=== PATIENT | female | born 1960 | race Caucasian/White ===

== ENCOUNTER 2017-02-20 22:02 | Inpatient (IN) | payer BC, MEDICAID ==
[~2017-02-20] VITALS: Ht 149.9 cm; Wt 75.0 kg
[2017-02-20] MEDS ORDERED: SOD CHLORIDE 0.9% 1,000 ML IV STA (22:44)
[2017-02-21] VITALS (11 sets, daily range): BP systolic 100–124; BP diastolic 57–69; PULSE 52–64; RESP 18–20; TEMP 97.5; Ht 149.9 cm; Wt 75.0 kg
--- NOTE | 2017-02-21 00:03 | ERD ---
ER Documentation Chief Complaint Chief Complaint BIBA RA90,fall r/t syncope, c/o left knee pain HPI 56-year-old female with a history of benign brain tumor diagnosed about 20 years ago, headaches, and high cholesterol brought in by ambulance after syncopal episode. Per her daughters at bedside, she was sitting at the table when she suddenly started complaining of dizziness and stated she felt hot. After this she lost consciousness and her daughter state her eyes rolled back. She became limp. There was no seizure-like activity. She woke up after she was laid on the ground. There was no head injury or fall. She was not confused when she woke up. Patient states that she has daily headaches and has never had a follow-up for her "brain tumor". She was told in the past that she could not have surgery for this as it was very high risk. She does not know anything else about the tumor. Denies any nausea, vomiting, diplopia, or other vision disturbance. She denies any focal weakness or numbness. ROS All systems reviewed and are negative except as per history of present illness. Allergies Allergies: Coded Allergies: No Known Allergy (Unverified , 02/20/17) PMhx/Soc Medical and Surgical Hx: pt denies Surgical Hx Hx Neurological Disorder: Yes (benign brain tumor ) Hx Respiratory Disorders: No Hx Cardiac Disorders: Yes (hyperlipidemia) Hx Psychiatric Problems: No Hx Miscellaneous Medical Probl: Yes (hypothyroidism) Hx Alcohol Use: No Hx Substance Use: No Hx Tobacco Use: No Smoking Status: Never smoker FmHx Family History: other (CVAs) Physical Exam Vitals Vital Signs Date Time Temp Pulse Resp B/P Pulse Ox O2 Delivery O2 Flow Rate FiO2 02/21/17 01:30 97.5 66 20 115/67 100 Room Air 02/21/17 00:46 70 20 108/65 100 Room Air 02/20/17 23:10 98.0 62 19 109/64 100 Room Air 02/20/17 22:07 98.3 73 18 131/73 99 Physical Exam Const: well developed, well-nourished, nontoxic, no apparent distress Head: Atraumatic Eyes: Normal Conjunctiva, PERRLA, EOMI, no nystagmus ENT: Normal External Ears, Nose and Mouth. Neck: Full range of motion..~ No meningismus. No C-spine tenderness, no JVD Resp: Clear to auscultation bilaterally Cardio: Regular rate and rhythm, no murmurs. 2+ distal pulses in all 4 extremities Abd: Soft, non tender, non distended. Normal bowel sounds Skin: No petechiae or rashes Back: No midline or flank tenderness Ext: No cyanosis, or edema Neur: Awake and alert, oriented 3, cranial nerves intact, normal speech, strength 5 out of 5 in all extremities. Sensations intact in all 4 extremities. Romberg negative. Cerebellar exam normal. Gait normal. Psych: Normal Mood and Affect Result Diagram: 02/20/17222102/20/172221 Results 24 hrs Laboratory Tests Test 02/20/17 22:22 02/20/17 22:29 02/20/17 23:05 White Blood Count 7.410^3/ul Red Blood Count 3.8810^6/ul Hemoglobin 11.1g/dl Hematocrit 34.0% Mean Corpuscular Volume 87.6fl Mean Corpuscular Hemoglobin 28.6pg Mean Corpuscular Hemoglobin Concent 32.6g/dl Red Cell Distribution Width 13.2% Platelet Count 02152^3/UL Mean Platelet Volume 10.3fl Neutrophils % 45.9% Lymphocytes % 43.6% Monocytes % 8.5% Eosinophils % 0.9% Basophils % 0.7% Nucleated Red Blood Cells % 0.0/100WBC Neutrophils # 3.410^3/ul Lymphocytes # 3.210^3/ul Monocytes # 0.610^3/ul Eosinophils # 0.110^3/ul Basophils # 0.110^3/ul Nucleated Red Blood Cells # 0.010^3/ul Sodium Level 142mmol/L Potassium Level 3.6mmol/L Chloride Level 109mmol/L Carbon Dioxide Level 21mmol/L Anion Gap 16 Blood Urea Nitrogen 17mg/dl Creatinine 0.92mg/dl Glucose Level 89mg/dl Calcium Level 9.4mg/dl Troponin I < 0.012ng/ml Bedside Glucose 83mg/dL Urine Color YELLOW Urine Clarity SLIGHTLY CLOUDY Urine pH 5.0 Urine Specific [place] 1.015 Urine Ketones NEGATIVEmg/dL Urine Nitrite NEGATIVEmg/dL Urine Bilirubin NEGATIVEmg/dL Urine Urobilinogen NEGATIVEmg/dL Urine Leukocyte Esterase 3+George/ul Urine Microscopic RBC 4/HPF Urine Microscopic WBC 43/HPF Urine Squamous Epithelial Cells FEW/HPF Urine Hemoglobin 1+mg/dL Urine Glucose NEGATIVEmg/dL Urine Total Protein NEGATIVEmg/dl Current Medications Medications (Trade) Dose Ordered Sig/Raman Route PRN Reason Start Time Stop Time Status Last Admin Dose Admin Sodium Chloride (NS) 1,000 ml @ 1,000 mls/hr Q1H STAT IV 02/20/17 22:44 02/20/17 23:43 DC 02/20/17 22:51 Ondansetron HCl (Zofran Inj) 4 mg ER BRIDGE PRN IV NAUSEA AND/OR VOMITING 02/21/17 01:30 02/22/17 01:29 Acetaminophen (Tylenol Tab) 650 mg ER BRIDGE PRN PO MILD PAIN/FEVER 02/21/17 01:30 02/22/17 01:29 Procedures/MDM EMERGENT LABS AND DIAGNOSTIC STUDIES: Lab Results above were reviewed and interpreted by me. CBC: mild anemia BMP: No evidence of electrolyte abnormality, renal failure, hypoglycemia, liver failure, or biliary obstruction Troponin within normal limits UA: 3+ LE, +WBC 12-lead EKG was interpreted by Yandel Rubalcava MD: Normal Sinus Rhythm with ventricular rate of 66 beats per minute Normal axis Normal intervals No acute ST or T wave changes suggestive of acute ischemia or STEMI. Radiology Results as interpreted by Radiology below were reviewed by SStorm Rubalcava MD: Chest x-ray: no acute abnormalities CT head: no acute abnormalities Initial Nursing notes reviewed. Previous Medical Records requested via the Electronic Health Record. EMERGENCY DEPARTMENT COURSE / MEDICAL DECISION MAKING: The patient presented after a syncopal episode. Vitals were stable upon arrival. Differential includes but is not limited to cardiac arrhythmia or ischemia, pulmonary embolism, vasovagal syncope, situational syncope, dehydration with orthostatic hypotension, hemorrhage, sepsis, stroke ,ICH, hypoglycemia. I have a low suspicion for seizure, stroke, or serious head injury. Blood sugar was normal. EKG showed no significant arrhythmia or ischemia. Labs were notable for possible evidence of urine infection, however the patient is asymptomatic, so I do not think treatment is necessary at this time. Urine culture was sent and is pending.. Chest Xray showed no acute abnormalities. Given the patients medical history of possible brain tumor, I do not think she is safe for discharge at this time. I feel she will likely need an MRI of her brain. She has no outpatient follow-up, so do not feel comfortable sending her home at this time without an MRI. I have a low suspicion for stroke and there is no evidence of increased intracranial pressure on the CT head. I will admit her for further monitoring to telemetry and for an MRI of her brain in the morning. Accepting Care Team: Current data and ongoing care discussed. Time: Time of admission Primary Provider: Biju Outstanding Data: Urine culture Departure Diagnosis: Primary Impression: Syncope Syncope type: unspecified Qualified Code: R55 - Syncope, unspecified syncope type Condition: CONOR Gonzalez MD Feb 21, 2017 00:03
--- NOTE | 2017-02-21 00:44 | RADRPT ---
PROCEDURE: Noncontrast CT Head. CLINICAL INDICATION: Pain. TECHNIQUE: Noncontrast CT of the head was obtained. The administered radiation dose was CTDI vol = 45 mGy, DLP = 720 mGy-cm. One or more of the following dose reduction techniques were used: automate d exposure control, adjustment of the mA and/or kV according to patient size and/or use of iterative reconstruction technique. COMPARISON: No pertinent prior examinations were submitted for comparison. FINDINGS: The ventricles and sulci are within normal limits. There is no acute intracranial hemorrhage or ext ra-axial fluid collection. There is no mass effect. No midline shift is identified. There is no loss of june-white differentiation to suggest acute infarction. The orbits are within normal limits. The paranasal sinuses and mastoid air cells are without fluid. No destructive osseous lesion is identified. IMPRESSION: No acute findings. RPTAT: HIKT .Crow De La Garza MD, MD Date Time Electronically viewed and signed by .Crow De La Garza MD, on 02/21/2017 00:44 .T/
--- NOTE | 2017-02-21 00:47 | RADRPT ---
PROCEDURE: Chest. CLINICAL INDICATION: Syncope. TECHNIQUE: Single frontal view of the chest was obtained. COMPARISON: None. FINDINGS: The cardiac silhouette is magnified. The aortic arch is unremarkable. There is no focal consolidat ion, vascular congestion or pleural effusion. There is no pneumothorax. IMPRESSION: No evidence for active cardiopulmonary disease. .Jose Carter MD, Date Time Electronically viewed and signed by .Jose Carter MD, on 02/21/2017 00:46 .T/
[2017-02-21] MEDS ORDERED: ONDANSETRON 4 MG INJ IV PRN ×2 (01:30→06:30)
[2017-02-21] MEDS ORDERED: ACETAMINOPHEN 325 MG TAB PO PRN ×2 (01:30→06:30)
[2017-02-21] MEDS ORDERED: DOCUSATE SODIUM 100 MG CAP PO PRN (06:30)
[2017-02-21] MEDS ORDERED: NACL 0.9% 3 ML SYG IV SCH (06:30)
[2017-02-21] MEDS ORDERED: BISACODYL (EC) 5 MG TAB PO PRN (06:30)
--- NOTE | 2017-02-21 09:45 | RADRPT ---
PROCEDURE: US carotid arteries. CLINICAL INDICATION: Syncope. Dizziness. TECHNIQUE: Multiple sonographic images of the carotid arteries and vertebral arteries were obtaine d utilizing june scale, duplex, and color-flow imaging. The images were reviewed on a PACS workstati on. COMPARISON: No prior studies are available for comparison. FINDINGS: Evaluation of the right carotid bifurcation region reveals no atherosclerotic disease. Evaluation of the left carotid bifurcation region reveals no atherosclerotic disease. There is antegrade flow within the vertebral arteries bilaterally. RIGHT CAROTID MEASUREMENTS: Common Carotid [id number] (cm/sec) Internal Carotid Artery 77 (cm/sec) External Carotid Artery 56 (cm/sec) Vertebral Artery 44 (cm/sec) Internal Carotid/Common Carotid1.0 LEFT CAROTID MEASUREMENTS: Common Carotid [id number] (cm/sec) Internal Carotid Artery 102 (cm/sec) External Carotid Artery 75 (cm/sec) Vertebral Artery 40 (cm/sec) Internal Carotid/Common Carotid1.2 Validated velocity measurements with angiographic measurements. Velocity criteria are extrapolated f rom diameter data as defined by the Society of Radiologists in Ultrasound Consensus Conference. Radi ology 2003; 229;340-346. This study does indirectly reference the measurement of the distal ICA lisa meter as the denominator for stenosis measurement. IMPRESSION: 1. Less than 50% stenosis bilaterally in the internal carotid arteries. 2. Normal antegrade flow in the vertebral arteries bilaterally. RPTAT: QQ SRU Consensus Conference Criteria for the Diagnosis of Carotid Artery Stenosis* Degree of Stenosis, % ICA PSV, cm/sec Plaque Estimate, % ICA/CCA PSV Ratio Normal <125 None <2.0 <50 <125 <50 <2.0 50 69 125-230 >50 2.0-4.0 >70 but less than near occlusion >230 >50 <4.0 Near occlusion High, low, or undetectable Visible Variable Total occlusion Undetectable Visible, no detectable lumen Not applicable *Cartoid artery stenosis: june-scale and Doppler US diagnosis. Society of Radiologists in Ultrasound Consensus Conference. Radiology 2003; 229: 340-346 .Norris Franklin MD, Date Time Electronically viewed and signed by .Norris Franklin MD, on 02/21/2017 09:45 .R/
--- NOTE | 2017-02-21 11:34 | HP ---
Date/Time of Note Date/Time of Note DATE: 02/21/17 TIME: 11:28 Assessment/Plan VTE Prophylaxis VTE Prophylaxis Intervention: SCD's Assessment/Plan Chief Complaint/Hosp Course This is a 56-year-old female being admitted to the telemetry floor for: #1 Syncopal episode: Patient does report loss of continence. She does have a history of apparently a brain tumor in the past. CAT scan again was normal at this time. Will check MRI of the brain. Will check carotid Doppler ultrasound. Will check 2D echocardiogram and Doppler study. Will consider neurology consultation/cardiology consultation if indicated. Will also check a TSH level. Patient also has a urinary tract infection is also could be attributed fracture. #2 hypothyroidism: Patient's dose of levothyroxine is unknown at this time, will need to confirm patient's dose. Will check a TSH level and adjust medication if indicated. #3 history of brain tumor: CAT scan at this time is currently normal. Will check MRI of the brain for further evaluation. Will consider neurology consultation if indicated. #4 urinary tract infection: Ceftriaxone 1 g every 24 hours. Will await urine culture. #5 DVT and GI prophylaxis: SCDs, no GI prophylaxis indicated at this time Further treatment strategy will be augmented as per the clinical course Problems: HPI/ROS Admit Date/Time Admit Date/Time Feb 21, 2017 at 01:32 Hx of Present Illness Chief complaint: Syncope This is a 56-year-old female with a history of benign brain tumor diagnosed about 20 years ago, headaches, and high cholesterol brought in by ambulance after syncopal episode. Per her daughters at bedside, she was sitting at the table when she suddenly started complaining of dizziness and stated she felt hot. After this she lost consciousness and her daughter state her eyes rolled back. She became limp. There was no seizure-like activity. She woke up after she was laid on the ground. There was no head injury or fall. She was not confused when she woke up. Patient states that she has daily headaches and has never had a follow-up for her "brain tumor". She was told in the past that she could not have surgery for this as it was very high risk. She does not know anything else about the tumor. Denies any nausea, vomiting, diplopia, or other vision disturbance. She denies any focal weakness or numbness. Of note patient also stated that during daytime she also threw up and for a few days she was noticing some right ear pressure which has not resolved. She does report that her urine is dark. Allergies: NKDA Medications: See KRYS BARR Const: As per HPI Eyes : No pain discharge or redness or change in visual acuity ENT: No pain, sore throat, congestion, congestion, dysphagia or discharge Respiratory: No shortness of breath, cough, sputum, wheezing, or pleuritic pain Cardiovascular: No chest pain, palpitation, PND, or edema GI : no change in appetite, abdominal pain, nausea, vomiting, diarrhea, constipation, or change in the color his stool Genitourinary: No dysuria, hematuria, flank pain , discharge or CVA tenderness Musculoskeletal: No joint pain, back pain, neck pain, restricted range of motion in neck or joints Skin: No rash, bruising or hives Neuro: As per HPI Endocrine: No polyuria, polydipsia, temperature intolerance Psych: No hallucination, depression, anxiety or suicidal ideation PMH/Family/Social Past Medical History History of brain tumor, hypothyroidism Past Surgical History Past Surgical Hx: no surgical history Family History Significant Family History: diabetes, hypertension Social History Alcohol Use: none Smoking Status: Never smoker Drug Use: none Exam/Review of Systems Vital Signs Vitals Vital Signs Date Time Temp Pulse Resp B/P Pulse Ox O2 Delivery O2 Flow Rate FiO2 02/21/17 08:32 98.6 59 18 100/57 98 02/21/17 01:30 Room Air Intake and Output 02/20/17 02/20/17 02/21/17 15:00 23:00 07:00 Intake Total 100 ml Balance 100 ml Exam Exam General: Patient is a pleasant female lying in bed in no acute distress The patient is alert oriented -3 lying comfortably in bed. HEENT: Atraumatic, normocephalic. The pupils are equal, round and reactive. Extraocular motor are intact Neck: Supple with full range of motion. No rigidity or meningismus Chest: Nontender Lungs: Clear to auscultation bilaterally no crackles rales or wheezing Heart: Normal S1-S2, Regular rhythm and rate. No murmur, S3, or S4 Abdomen: Soft , nontender, nondistended , bowel sounds are present. No guarding no rebound tenderness , No masses or organomegaly. No costovertebral temporal angle mass Extremities: Normal to inspection, no edema no cyanosis Neurologic: Normal mental status, speech normal, cranial nerves II through XII are intact, motor and sensory are intact, no focal weakness Additional Comments PROCEDURE: Chest. CLINICAL INDICATION: Syncope. TECHNIQUE: Single frontal view of the chest was obtained. COMPARISON: None. FINDINGS: The cardiac silhouette is magnified. The aortic arch is unremarkable. There is no focal consolidation, vascular congestion or pleural effusion. There is no pneumothorax. IMPRESSION: No evidence for active cardiopulmonary disease. .Jose Carter MD, MD Date Time Electronically viewed and signed by .Jose Carter MD, MD on 02/21/2017 00:46 .T/ CC: CONOR NOEL MD PROCEDURE: Noncontrast CT Head. CLINICAL INDICATION: Pain. TECHNIQUE: Noncontrast CT of the head was obtained. The administered radiation dose was CTDI vol = 45 mGy, DLP = 720 mGy-cm. One or more of the following dose reduction techniques were used: automated exposure control, adjustment of the mA and/or kV according to patient size and/or use of iterative reconstruction technique. COMPARISON: No pertinent prior examinations were submitted for comparison. FINDINGS: The ventricles and sulci are within normal limits. There is no acute intracranial hemorrhage or extra-axial fluid collection. There is no mass effect. No midline shift is identified. There is no loss of june-white differentiation to suggest acute infarction. The orbits are within normal limits. The paranasal sinuses and mastoid air cells are without fluid. No destructive osseous lesion is identified. IMPRESSION: No acute findings. RPTAT: HIKT .Crow De La Garza MD, Date Time Electronically viewed and signed by .Crow De La Garza MD, MD on 02/21/2017 00:44 .T/ CC: CONOR NOEL MD Labs Result Diagram: 02/21/17 0646 02/21/17 0646 Medications Medications Current Medications Ondansetron HCl (Zofran Inj) 4 mg Q6H PRN IV NAUSEA AND/OR VOMITING; Start 02/21/17 at 06:30 Acetaminophen (Tylenol Tab) 650 mg Q6H PRN PO PAIN LEVEL 1-3 OR FEVER; Start 02/21/17 at 06:30 Docusate Sodium (Colace) 100 mg Q12H PRN PO CONSTIPATION; Start 02/21/17 at 06: 30 Bisacodyl (Dulcolax) 5 mg DAILY PRN PO CONSTIPATION; Start 02/21/17 at 06:30 PAM RAVI Feb 21, 2017 11:34
[2017-02-21] MEDS: CEFTRIAXONE 1 GM/50 ML (PMX) 50 ML IVPB SCH (13:00)
--- NOTE | 2017-02-21 13:32 | PN ---
Date/Time of Note Date/Time of Note DATE: 02/21/17 TIME: 13:32 Assessment/Plan VTE Prophylaxis VTE Prophylaxis Intervention: SCD's Assessment/Plan Assessment/Plan 1. Syncopal episode - CT head shows no acute abnormalities - MRI head and ECHO pending - Carotid duplex negative for any acute stenosis 2. Hypothyroidism - Home dose of synthroid unknown and will start on 25mcg for now and adjust once able to confirm pts dose - TSH 8 3. H/o brain tumor - Patient states was told 20 years ago she had a tumor but was inoperable - CT negative for any abnormalities - Will await MRI results prior to obtaining Neurology consult if needed 4. UTI - On Ceftriaxone - Culture pending 5. Disposition - continue monitoring in Telemetry - Awaiting results of ECHO and MRI to see if consultations warranted Subjective 24 Hr Interval Summary Free Text/Dictation Patient resting comfortably with family at bedside. Denies any new complaints and no acute overnight events. Awaiting MRI Exam/Review of Systems Vital Signs Vitals Vital Signs Date Time Temp Pulse Resp B/P Pulse Ox O2 Delivery O2 Flow Rate FiO2 02/21/17 12:24 98.6 60 18 124/60 99 02/21/17 01:30 Room Air Intake and Output 02/20/17 02/20/17 02/21/17 15:00 23:00 07:00 Intake Total 100 ml Balance 100 ml Exam General: Resting comfortably in no acute distress. AAOx4 HEENT: Atraumatic, normocephalic. The pupils are equal, round and reactive. Extraocular motor are intact Neck: Supple with full range of motion. No rigidity or meningismus Lungs: Clear to auscultation bilaterally no crackles rales or wheezing Heart: Normal S1-S2, Regular rhythm and rate. No murmur, S3, or S4 Abdomen: Soft , nontender, nondistended , bowel sounds are present. No guarding no rebound tenderness Extremities: Normal to inspection, no edema no cyanosis Neurologic: Normal mental status, speech normal, cranial nerves II through XII are intact, motor and sensory are intact, no focal weakness Results Result Diagram: 02/21/17 0646 02/21/17 0646 Results 24 hrs Laboratory Tests Test 02/20/17 22:22 02/20/17 22:29 02/20/17 23:05 02/21/17 06:46 White Blood Count 7.4 7.4 Red Blood Count 3.88 L 3.73 L Hemoglobin 11.1 L 10.8 L Hematocrit 34.0 L 33.0 L Mean Corpuscular Volume 87.6 88.5 Mean Corpuscular Hemoglobin 28.6 L 29.0 Mean Corpuscular Hemoglobin Concent 32.6 32.7 Red Cell Distribution Width 13.2 13.2 Platelet Count 233 248 Mean Platelet Volume 10.3 10.3 Neutrophils % 45.9 52.0 Lymphocytes % 43.6 38.2 Monocytes % 8.5 7.9 Eosinophils % 0.9 0.9 Basophils % 0.7 0.7 Nucleated Red Blood Cells % 0.0 0.0 Neutrophils # 3.4 3.9 Lymphocytes # 3.2 H 2.8 Monocytes # 0.6 0.6 Eosinophils # 0.1 0.1 Basophils # 0.1 0.1 Nucleated Red Blood Cells # 0.0 0.0 Sodium Level 142 144 Potassium Level 3.6 4.5 Chloride Level 109 112 H Carbon Dioxide Level 21 23 Anion Gap 16 14 Blood Urea Nitrogen 17 16 Creatinine 0.92 0.83 Glucose Level 89 95 Calcium Level 9.4 8.9 Troponin I < 0.012 < 0.012 Bedside Glucose 83 Urine Color YELLOW Urine Clarity SLIGHTLY CLOUDY A Urine pH 5.0 Urine Specific [place] 1.015 Urine Ketones NEGATIVE Urine Nitrite NEGATIVE Urine Bilirubin NEGATIVE Urine Urobilinogen NEGATIVE Urine Leukocyte Esterase 3+ H Urine Microscopic RBC 4 Urine Microscopic WBC 43 H Urine Squamous Epithelial Cells FEW Urine Hemoglobin 1+ H Urine Glucose NEGATIVE Urine Total Protein NEGATIVE Hemoglobin A1c 5.6 Total Bilirubin 0.1 L Direct Bilirubin 0.00 Indirect Bilirubin 0.1 Aspartate Amino Transf (AST/SGOT) 23 Alanine Aminotransferase (ALT/SGPT) 31 Alkaline Phosphatase 67 Creatine Kinase 93 Creatine Kinase Index 1.4 Creatinine Kinase MB (Mass) 1.26 Total Protein 6.7 Albumin 3.7 Globulin 3.00 Albumin/Globulin Ratio 1.23 Triglycerides Level 190 H Cholesterol Level 186 LDL Cholesterol, Calculated 79 HDL Cholesterol 69 Cholesterol/HDL Ratio 2.6 Thyroid Stimulating Hormone (TSH) 8.420 H Test 02/21/17 12:04 Creatine Kinase 88 Creatine Kinase Index 1.2 Creatinine Kinase MB (Mass) 1.05 Troponin I < 0.012 Medications Medications Current Medications Ondansetron HCl (Zofran Inj) 4 mg Q6H PRN IV NAUSEA AND/OR VOMITING; Start 02/21/17 at 06:30 Acetaminophen (Tylenol Tab) 650 mg Q6H PRN PO PAIN LEVEL 1-3 OR FEVER; Start 02/21/17 at 06:30 Docusate Sodium (Colace) 100 mg Q12H PRN PO CONSTIPATION; Start 02/21/17 at 06: 30 Bisacodyl 5 mg 5 mg DAILY PRN PO CONSTIPATION; Start 02/21/17 at 06:30 Ceftriaxone Sodium (Rocephin) 50 ml @ 100 mls/hr Q24H IVPB ; Start 02/21/17 at 13:00 PENNIE JAFFE MD Feb 21, 2017 13:32
[2017-02-22] VITALS (12 sets, daily range): BP systolic 100–118; BP diastolic 57–62; PULSE 42–71; RESP 16–18
[2017-02-22] MEDS: LEVOTHYROXINE 25 MCG TAB PO SCH (05:27)
[2017-02-22] MEDS: CEFTRIAXONE 1 GM/50 ML (PMX) 50 ML IVPB SCH (14:13)
--- NOTE | 2017-02-22 15:51 | RADRPT ---
PROCEDURE: MR Brain without contrast. CLINICAL INDICATION: Neurologic deficit TECHNIQUE: An MRI of the brain was performed on a high-resolution MR scanner utilizing the followi ng sequences: Sagittal and axial T1 weighted, axial T2 weighted, axial FLAIR, coronal GRE, and axial diffusion weighted with ADC mapping. Images were reviewed high-resolution PACS workstation. No con trast was administered. COMPARISON: Head CT 02/21/2017 FINDINGS: No acute parenchymal hemorrhage, mass effect, or midline shift. No evidence of recent infarct. Scatt ered subcortical in deep cerebral white matter T2-weighted/FLAIR hyperintensities are identified. No suspicious parenchymal hypointense signal abnormalities are seen on the GRE images to suggest the presence of blood degradation products. The ventricles are normal in size for age. Normal flow voids are visible in the proximal intracranial arteries suggesting their patency. No significant opacification of the paranasal sinuses or mastoids. IMPRESSION: No acute intracranial abnormality identified. Numerous scattered bilateral cerebral white matter T2 / FLAIR hyperintense foci are identified. The findings are nonspecific but can be seen with prior trauma, chronic headaches, microvascular disease , vasculitis, demyelination, or other etiologies. RPTAT: AA .Cheng De La Rosa MD, MD Date Time Electronically viewed and signed by .Cheng De La Rosa MD, on 02/22/2017 15:50 .T/
--- NOTE | 2017-02-22 16:12 | PN ---
Date/Time of Note Date/Time of Note DATE: 02/22/17 TIME: 16:10 Assessment/Plan VTE Prophylaxis VTE Prophylaxis Intervention: SCD's Lines/Catheters IV Catheter Type (from [facility] Sal[facility] Lock Urinary Cath still in place: No Assessment/Plan Chief Complaint/Hosp Course 1. Syncopal episode - CT head shows no acute abnormalities - MRI head non specific - Carotid duplex negative for any acute stenosis - possible 2/2 to uti/volume depletion 2. Hypothyroidism - Home dose of synthroid unknown and will start on 25mcg for now and adjust once able to confirm pts dose - TSH 8 3. H/o brain tumor - Patient states was told 20 years ago she had a tumor but was inoperable - CT negative for any abnormalities - MRI non-specific, no signs of mass, but study was non-contrast 4. UTI - On Ceftriaxone - Culture pending 5. Disposition - cardiology consult for bradycardia Problems: Subjective 24 Hr Interval Summary Free Text/Dictation no acute issues Exam/Review of Systems Vital Signs Vitals Vital Signs Date Time Temp Pulse Resp B/P Pulse Ox O2 Delivery O2 Flow Rate FiO2 02/22/17 16:00 98.0 75 18 105/59 97 02/21/17 01:30 Room Air Intake and Output 02/21/17 02/21/17 02/22/17 15:00 23:00 07:00 Intake Total 300 ml Balance 300 ml Exam General: Resting comfortably in no acute distress. AAOx4 HEENT: Atraumatic, normocephalic. The pupils are equal, round and reactive. Extraocular motor are intact Neck: Supple with full range of motion. No rigidity or meningismus Lungs: Clear to auscultation bilaterally no crackles rales or wheezing Heart: Normal S1-S2, Regular rhythm and rate. No murmur, S3, or S4 Abdomen: Soft , nontender, nondistended , bowel sounds are present. No guarding no rebound tenderness Extremities: Normal to inspection, no edema no cyanosis Neurologic: Normal mental status, speech normal, cranial nerves II through XII are intact, motor and sensory are intact, no focal weakness Results Result Diagram: 02/22/1733 02/22/17 0633 Results 24 hrs Laboratory Tests Test 02/22/17 06:33 White Blood Count 6.8 Red Blood Count 3.99 L Hemoglobin 11.8 L Hematocrit 35.5 L Mean Corpuscular Volume 89.0 Mean Corpuscular Hemoglobin 29.6 Mean Corpuscular Hemoglobin Concent 33.2 Red Cell Distribution Width 13.0 Platelet Count 258 Mean Platelet Volume 10.2 Neutrophils % 50.5 Lymphocytes % 40.4 Monocytes % 7.0 Eosinophils % 1.2 Basophils % 0.6 Nucleated Red Blood Cells % 0.0 Neutrophils # 3.4 Lymphocytes # 2.8 Monocytes # 0.5 Eosinophils # 0.1 Basophils # 0.0 Nucleated Red Blood Cells # 0.0 Sodium Level 144 Potassium Level 4.7 Chloride Level 108 Carbon Dioxide Level 29 Anion Gap 12 Blood Urea Nitrogen 16 Creatinine 0.83 Glucose Level 86 Calcium Level 9.7 Phosphorus Level 4.0 Magnesium Level 1.9 Albumin 3.9 Medications Medications Current Medications Ondansetron HCl (Zofran Inj) 4 mg Q6H PRN IV NAUSEA AND/OR VOMITING; Start 02/21/17 at 06:30 Acetaminophen (Tylenol Tab) 650 mg Q6H PRN PO PAIN LEVEL 1-3 OR FEVER; Start 02/21/17 at 06:30 Docusate Sodium (Colace) 100 mg Q12H PRN PO CONSTIPATION; Start 02/21/17 at 06: 30 Bisacodyl 5 mg 5 mg DAILY PRN PO CONSTIPATION; Start 02/21/17 at 06:30 Ceftriaxone Sodium (Rocephin) 50 ml @ 100 mls/hr Q24H IVPB Last administered on 02/22/17 14:13; Admin Dose 100 MLS/HR; Start 02/21/17 at 13:00 Levothyroxine Sodium (Synthroid) 25 mcg DAILY@06 PO Last administered on 05:27; Admin Dose 25 MCG; Start 02/22/17 at 06:00 CALOS SAEZ Feb 22, 2017 16:12
[2017-02-23] VITALS (13 sets, daily range): BP systolic 92–119; BP diastolic 51–91; PULSE 49–98; RESP 15–20
[2017-02-23] MEDS: LEVOTHYROXINE 25 MCG TAB PO SCH (06:02)
[2017-02-23] MEDS: CEFTRIAXONE 1 GM/50 ML (PMX) 50 ML IVPB SCH (12:30)
--- NOTE | 2017-02-23 15:14 | PN ---
Date/Time of Note Date/Time of Note DATE: 02/23/17 TIME: 15:13 Assessment/Plan VTE Prophylaxis VTE Prophylaxis Intervention: SCD's Lines/Catheters IV [facility]ter Type (from [email or web address] Urinary Cath still in place: No Assessment/Plan Chief Complaint/Hosp Course 1. Syncopal episode - CT head shows no acute abnormalities - MRI head non specific - Carotid duplex negative for any acute stenosis - possible 2/2 to uti/volume depletion #bradycardia -? cause of syncope -cardiology consulted -happens in early AM 2. Hypothyroidism - Home dose of synthroid unknown and will start on 25mcg for now and adjust once able to confirm pts dose - TSH 8 3. H/o brain tumor - Patient states was told 20 years ago she had a tumor but was inoperable - CT negative for any abnormalities - MRI non-specific, no signs of mass, but study was non-contrast 4. UTI - On Ceftriaxone - Culture pending 5. Disposition - cardiology consult for bradycardia Problems: Subjective 24 Hr Interval Summary Free Text/Dictation no acute issues at this time Exam/Review of Systems Vital Signs Vitals Vital Signs Date Time Temp Pulse Resp B/P Pulse Ox O2 Delivery O2 Flow Rate FiO2 02/23/17 12:23 85 02/23/17 11:40 98.6 18 109/55 99 02/22/17 20:00 Room Air Intake and Output 02/22/17 02/22/17 02/23/17 15:00 23:00 07:00 Intake Total 120 ml 120 ml Balance 120 ml 120 ml Exam General: Resting comfortably in no acute distress. AAOx4 HEENT: Atraumatic, normocephalic. The pupils are equal, round and reactive. Extraocular motor are intact Neck: Supple with full range of motion. No rigidity or meningismus Lungs: Clear to auscultation bilaterally no crackles rales or wheezing Heart: Normal S1-S2, Regular rhythm and rate. No murmur, S3, or S4 Abdomen: Soft , nontender, nondistended , bowel sounds are present. No guarding no rebound tenderness Extremities: Normal to inspection, no edema no cyanosis Neurologic: Normal mental status, speech normal, cranial nerves II through XII are intact, motor and sensory are intact, no focal weakness Results Result Diagram: 02/23/1781202/23/17812 Results 24 hrs Laboratory Tests Test 11/7/17 08:13 White Blood Count 6.3 Red Blood Count 3.99 L Hemoglobin 11.9 L Hematocrit 35.5 L Mean Corpuscular Volume 89.0 Mean Corpuscular Hemoglobin 29.8 Mean Corpuscular Hemoglobin Concent 33.5 Red Cell Distribution Width 12.8 Platelet Count 261 Mean Platelet Volume 9.9 Neutrophils % 48.1 Lymphocytes % 43.5 Monocytes % 6.2 Eosinophils % 1.1 Basophils % 0.8 Nucleated Red Blood Cells % 0.0 Neutrophils # 3.0 Lymphocytes # 2.7 Monocytes # 0.4 Eosinophils # 0.1 Basophils # 0.1 Nucleated Red Blood Cells # 0.0 Sodium Level 145 H Potassium Level 4.7 Chloride Level 107 Carbon Dioxide Level 27 Anion Gap 16 Blood Urea Nitrogen 16 Creatinine 0.84 Glucose Level 88 Calcium Level 9.4 Phosphorus Level 4.6 Magnesium Level 2.0 Albumin 4.1 Medications Medications Current Medications Ondansetron HCl (Zofran Inj) 4 mg Q6H PRN IV NAUSEA AND/OR VOMITING; Start 02/21/17 at 06:30 Acetaminophen (Tylenol Tab) 650 mg Q6H PRN PO PAIN LEVEL 1-3 OR FEVER; Start 02/21/17 at 06:30 Docusate Sodium (Colace) 100 mg Q12H PRN PO CONSTIPATION; Start 02/21/17 at 06: 30 Bisacodyl 5 mg 5 mg DAILY PRN PO CONSTIPATION; Start 02/21/17 at 06:30 Ceftriaxone Sodium (Rocephin) 50 ml @ 100 mls/hr Q24H IVPB Last administered on 02/23/17 12:30; Admin Dose 100 MLS/HR; Start 02/21/17 at 13:00 Levothyroxine Sodium (Synthroid) 25 mcg DAILY@06 PO Last administered on 06:02; Admin Dose 25 MCG; Start 02/22/17 at 06:00 CALOS SAEZ Feb 23, 2017 15:14
--- NOTE | 2017-02-23 17:17 | CONS ---
Date/Time of Note Date/Time of Note DATE: 02/23/17 TIME: 17:12 Assessment/Plan Assessment/Plan Chief Complaint/Hosp Course 1. Syncope: Etiology unclear by doubt any cardiac cause an arrhythmia as the cause of it. 2. Sinus bradycardia intermittent and probably related to her thyroid disorder. Obstructive sleep apnea cannot be ruled out. 3. History of hypothyroidism to be managed as per internal medicine 4. History of dyslipidemia 5. Obesity Recommendation: I recommend adjustment of thyroid medication Recommends a sleep apnea evaluation No evidence of significant arrhythmia on the monitor to explain the patient's syncope. Span is bradycardia by itself should not cause the syncope. No evidence of heart block was seen. Thank you for his referral. I will follow the patient as needed. Please do not hesitate to contact me for any further questions. RAUL NAJERA MD [facility] Problems: Consultation Date/Type/Reason Admit Date/Time Feb 21, 2017 at 01:32 Date of Consultation: Feb 23, 2017 Type of Consultation: card Reason for Consultation bradycardia Hx of Present Illness CC: syncope HPI: Thank you for his referral. History was of normal the patient discussion with her daughters. This is a pleasant 56-year-old female with history of hypothyroidism and dyslipidemia who was brought into the emergency room because of above complaint. Patient said she was holding her grandkids. She felt dizzy and lightheaded felt like she was going to pass out. She handed the grandkids to the family and after that apparently has passed out. She denies any history of similar symptoms. She was noted to be in sinus bradycardia. It was it was reviewed. Heart has remained mostly sinus rhythm sinus bradycardia heart as low as 40s-50s but in sinus with no evidence of heart block as a review of the rhythm which was personally done. Patient is also on Synthroid which does not know exact dosage of it. Her TSH was also elevated at 8. No chest pain or pressure no palpitation. She is feeling fine since she has been in the hospital. Medication At Home Synthroid and a cholesterol medication she does not know the dosage of them. Social history does not smoke or drink. Past medical history of hypothyroidism and dyslipidemia Family history no reported early coronary artery disease. Review of system as above only. Past Surgical History Past Surgical Hx: no surgical history Social History Alcohol Use: none Smoking Status: Never smoker Drug Use: none Exam/Review of Systems Vital Signs Vitals Vital Signs Date Time Temp Pulse Resp B/P Pulse Ox O2 Delivery O2 Flow Rate FiO2 02/23/17 16:42 62 104/58 110/56 111/91 02/23/17 15:44 98.4 18 96 02/22/17 20:00 Room Air Intake and Output 02/22/17 02/22/17 02/23/17 15:00 23:00 07:00 Intake Total 120 ml 120 ml Balance 120 ml 120 ml Exam General: obese no acute distress HEENT: NC/AT. pupils are equal. round. NECK: NO JVD. no stridor. CV: RRR. systolic murmur; no gallop or rubs. PULM: no wheezing or rhonchi. GI: SOFT, NT, ND, no rebound or guarding Extremity: trace B/L LE edema. no clubbing. neuro: awake and alert, OX3. Psych: calm and pleasant rectal: deferred ECG NSR Results Result Diagram: 02/23/17 0813 02/23/17 0813 Results 24 hrs Laboratory Tests Test 02/23/17 08:13 White Blood Count 6.3 Red Blood Count 3.99 L Hemoglobin 11.9 L Hematocrit 35.5 L Mean Corpuscular Volume 89.0 Mean Corpuscular Hemoglobin 29.8 Mean Corpuscular Hemoglobin Concent 33.5 Red Cell Distribution Width 12.8 Platelet Count 261 Mean Platelet Volume 9.9 Neutrophils % 48.1 Lymphocytes % 43.5 Monocytes % 6.2 Eosinophils % 1.1 Basophils % 0.8 Nucleated Red Blood Cells % 0.0 Neutrophils # 3.0 Lymphocytes # 2.7 Monocytes # 0.4 Eosinophils # 0.1 Basophils # 0.1 Nucleated Red Blood Cells # 0.0 Sodium Level 145 H Potassium Level 4.7 Chloride Level 107 Carbon Dioxide Level 27 Anion Gap 16 Blood Urea Nitrogen 16 Creatinine 0.84 Glucose Level 88 Calcium Level 9.4 Phosphorus Level 4.6 Magnesium Level 2.0 Albumin 4.1 Medications Medications Current Medications Ondansetron HCl (Zofran Inj) 4 mg Q6H PRN IV NAUSEA AND/OR VOMITING; Start 02/21/17 at 06:30 Acetaminophen (Tylenol Tab) 650 mg Q6H PRN PO PAIN LEVEL 1-3 OR FEVER; Start 02/21/17 at 06:30 Docusate Sodium (Colace) 100 mg Q12H PRN PO CONSTIPATION; Start 02/21/17 at 06: 30 Bisacodyl 5 mg 5 mg DAILY PRN PO CONSTIPATION; Start 02/21/17 at 06:30 Ceftriaxone Sodium (Rocephin) 50 ml @ 100 mls/hr Q24H IVPB Last administered on 02/23/17 12:30; Admin Dose 100 MLS/HR; Start 02/21/17 at 13:00 Levothyroxine Sodium (Synthroid) 25 mcg DAILY@06 PO Last administered on 06:02; Admin Dose 25 MCG; Start 02/22/17 at 06:00 RAUL NAJERA MD Feb 23, 2017 17:17
[2017-02-24] VITALS (8 sets, daily range): BP systolic 99–126; BP diastolic 52–77; PULSE 62–71; RESP 17–20
[2017-02-24] MEDS: LEVOTHYROXINE 25 MCG TAB PO SCH (05:10)
--- NOTE | 2017-02-24 11:40 | PDOCDIS ---
Discharge Instructions CONDITION Patient Condition: Stable HOME CARE INSTRUCTIONS: Special Diet: REGULAR DIET FOLLOW UP/APPOINTMENTS Follow-up Plan 1. Follow up with your primary care provider as soon as possible to follow up thyroid levels CALOS SAEZ Feb 24, 2017 11:40
[2017-02-24] MEDS ORDERED: SIMV40TA3 PO (11:42)
[2017-02-24] MEDS ORDERED: LEVO137T3 PO (11:42)
--- NOTE | 2017-02-24 14:33 | DS ---
Date/Time of Note Date/Time of Note DATE: 02/24/17 TIME: 14:33 Discharge Summary Admission/Discharge Info Admit Date/Time Feb 21, 2017 at 01:32 Discharge Date/Time Feb 24, 2017 at 13:30 Patient Condition: Stable Hx of Present Illness Chief complaint: Syncope This is a 56-year-old female with a history of benign brain tumor diagnosed about 20 years ago, headaches, and high cholesterol brought in by ambulance after syncopal episode. Per her daughters at bedside, she was sitting at the table when she suddenly started complaining of dizziness and stated she felt hot. After this she lost consciousness and her daughter state her eyes rolled back. She became limp. There was no seizure-like activity. She woke up after she was laid on the ground. There was no head injury or fall. She was not confused when she woke up. Patient states that she has daily headaches and has never had a follow-up for her "brain tumor". She was told in the past that she could not have surgery for this as it was very high risk. She does not know anything else about the tumor. Denies any nausea, vomiting, diplopia, or other vision disturbance. She denies any focal weakness or numbness. Of note patient also stated that during daytime she also threw up and for a few days she was noticing some right ear pressure which has not resolved. She does report that her urine is dark. Allergies: NKDA Medications: See MAR Hospital Course Patient is a 56-year-old female who presents with syncope patient received CT and MRI with no significant acute abnormalities, there were nonspecific findings on MRI, however does patient have any specific findings, and at this point volume depletion and UTI is likely cause of patient's syncopal episode. Patient also has a history of headaches which can contribute to the nonspecific findings on MRI and syncope. Patient had astigmatic bradycardia in the a.m., cardiology consulted and saw patient who evaluated and stated patient may not be on optimal levothyroxine therapy, patient has been receiving 25 mcg in the hospital, patient finally brought home medication found to have 125 mcg, will be upgraded to 137 mcg given elevated TSH. Explicit instructions were given to patient to follow-up with primary care provider as she needs frequent TSH and thyroid monitoring. Patient finished 3 days of IV antibiotics for her uncomplicated UTI and will be discharged. Discharge diagnoses Syncope, resolved Bradycardia, asymptomatic Hypothyroidism History of brain tumor, 20 years ago, no evidence on scans UTI Home Meds Active Scripts Simvastatin (Simvastatin) 40 Mg Tablet, 40 MG PO QHS, #30 TAB Prov:CALOS SAEZ 02/24/17 Levothyroxine Sodium* (Levothyroxine Sodium*) 137 Mcg Tablet, 137 MCG PO BEFORE BREAKFAST, #30 TAB 1 Refill Prov:CALOS SAEZ 02/24/17 Follow-up Plan 1. Follow up with your primary care provider as soon as possible to follow up thyroid levels Primary Care Provider Not On Staff Doctor Time spent on discharge: > 30 minutes Pending Labs Laboratory Tests Test 02/24/17 07:27 White Blood Count 9.710^3/ul (4.8-10.8) Red Blood Count 4.0910^6/ul (4.20-5.40) Hemoglobin 11.9g/dl (12.0-16.0) Hematocrit 35.9% (37.0-47.0) Mean Corpuscular Volume 87.8fl (82.0-101.0) Mean Corpuscular Hemoglobin 29.1pg (29.0-33.0) Mean Corpuscular Hemoglobin Concent 33.1g/dl (32.0-37.0) Red Cell Distribution Width 13.1% (11.5-14.5) Platelet Count 12218^3/UL (140-415) Mean Platelet Volume 9.9fl (7.4-10.4) Neutrophils % 72.2% (39.0-77.0) Lymphocytes % 21.5% (15.0-51.0) Monocytes % 4.6% (0.0-11.0) Eosinophils % 0.7% (0.0-7.0) Basophils % 0.6% (0.0-2.0) Nucleated Red Blood Cells % 0.0/100WBC (0.0-0.0) Neutrophils # 7.010^3/ul (1.6-7.5) Lymphocytes # 2.110^3/ul (0.8-2.9) Monocytes # 0.410^3/ul (0.3-0.9) Eosinophils # 0.110^3/ul (0.0-0.5) Basophils # 0.110^3/ul (0.0-0.1) Nucleated Red Blood Cells # 0.010^3/ul (0.0-0.0) Sodium Level 141mmol/L (135-144) Potassium Level 4.6mmol/L (3.5-5.1) Chloride Level 106mmol/L (97-110) Carbon Dioxide Level 25mmol/L (21-31) Anion Gap 15 (8-16) Blood Urea Nitrogen 20mg/dl (7-20) Creatinine 0.78mg/dl (0.44-1.00) Glucose Level 97mg/dl (70-220) Calcium Level 9.3mg/dl (8.4-10.2) Phosphorus Level 4.4mg/dl (2.5-4.9) Albumin 4.3g/dl (3.3-4.9) CALOS SAEZ Feb 24, 2017 14:33
[2017-02-25] MEDS ORDERED: LEVOTHYROXINE 25 MCG TAB PO SCH (06:00)
--- NOTE | 2017-02-26 15:35 | RADRPT ---
Echocardiogram Report Patient Name: NATHANIEL ARIAS Gender: Female Date: 1960 Study Date: 22-Feb-2017 Lunch Cook: Lola [facility] Location: 5558 Ref. Physician: PAM RAVI Quality: Adequate Procedures: Transthoracic echocardiogram with complete 2D, M-Mode, and doppler examination. Indications: Syncope. 2D/M Mode Doppler Measurement Value Normal Ranges Measurement Value Normal Ranges LVIDd 2D 3.7 3.5 - 5.6 cm AV Peak Daniel 1.7 m/sec LVIDs 2D 2.4 2.1 - 4.1 cm AV Peak PG 11.0 mmHg FS 2D 35.6 % LVOT Peak Daniel 1.1 m/sec LVPWd 2D 1.3 0.6 - 1.1 cm LVOT Peak PG 5.0 mmHg IVSd 2D 1.3 0.6 - 1.1 cm MV E Peak Daniel 0.7 m/sec IVS/LVPW 2D 1.0 MV A Peak Daniel 0.8 m/sec AoR Diam 2D 2.3 2.0 - 3.7 cm MV E/A 0.9 LA/Ao 2D 2 0 - 1 MV Decel Time 275 msec EDV 2D 51.1 cm3 MV E/A 0.9 ESV 2D 13.7 cm3 TR Peak Daniel 2.2 m/sec LA Dimen 2D 3.8 2.3 - 4.0 cm TR Peak PG 20.0 mmHg RVSP 23.0 mmHg Findings Left Ventricle: Normal left ventricular systolic function. Normal left ventricular cavity size. Mild concentric left ventricular hypertrophy. Ejection fraction is visually estimated at 65 %. Tissue Doppler/Mitral Doppler indices are consistent with impaired relaxation (Stage I diastolic dysfunction). Right Ventricle: Normal right ventricular size. Normal right ventricular systolic function. Left Atrium: The left atrium is normal in size. Right Atrium: The right atrium is normal in size. Atrial Septum: Bubble study was performed with and with out valsalva indicating no evidence of intra atrial shunt. Mitral Valve: Mild mitral leaflet calcification. Mild mitral annular calcification. Trace mitral regurgitation. Aortic Valve: Normal appearance of the aortic valve. No significant aortic stenosis or insufficiency. Tricuspid Valve: Normal appearance of the tricuspid valve. Estimated peak PA systolic pressure 23 mmHg. There is mild tricuspid regurgitation. Pulmonic Valve: Pulmonic valve not well visualized. There is trace pulmonic regurgitation. Pericardium: Normal pericardium with no significant pericardial effusion. Aorta: Normal aortic root. IVC: Normal size and normal respiratory collapse consistent with normal right atrial pressure. Conclusions 1.Normal left ventricular systolic function. Normal left ventricular cavity size. Mild concentric left ventricular hypertrophy. Ejection fraction is visually estimated at 65 %. Tissue Doppler/Mitral Doppler indices are consistent with impaired relaxation (Stage I diastolic dysfunction). 2.Mild mitral leaflet calcification. Mild mitral annular calcification. Trace mitral regurgitation. 3.Normal appearance of the aortic valve. No significant aortic stenosis or insufficiency. 4.Normal appearance of the tricuspid valve. Estimated peak PA systolic pressure 23 mmHg. There is mild tricuspid regurgitation. Electronically Signed By: Pito Jimenes 26-Feb-2017 15:34:45 -0800 Patient Name: NATHANIEL ARIAS Study Date: 22-Feb-[id number]
--- NOTE | 2017-02-26 15:35 | RADRPT ---
Echocardiogram Report Patient Name: NATHANIEL ARIAS Gender: Female Date: 1960 Study Date: 22-Feb-2017 Curator Of Photography And Prints: Lola [facility] Location: 5558 Ref. Physician: PAM RAVI Quality: Adequate Procedures: Transthoracic echocardiogram with complete 2D, M-Mode, and doppler examination. Indications: Syncope. 2D/M Mode Doppler Measurement Value Normal Ranges Measurement Value Normal Ranges LVIDd 2D 3.7 3.5 - 5.6 cm AV Peak Daniel 1.7 m/sec LVIDs 2D 2.4 2.1 - 4.1 cm AV Peak PG 11.0 mmHg FS 2D 35.6 % LVOT Peak Daniel 1.1 m/sec LVPWd 2D 1.3 0.6 - 1.1 cm LVOT Peak PG 5.0 mmHg IVSd 2D 1.3 0.6 - 1.1 cm MV E Peak Daniel 0.7 m/sec IVS/LVPW 2D 1.0 MV A Peak Daniel 0.8 m/sec AoR Diam 2D 2.3 2.0 - 3.7 cm MV E/A 0.9 LA/Ao 2D 2 0 - 1 MV Decel Time 275 msec EDV 2D 51.1 cm3 MV E/A 0.9 ESV 2D 13.7 cm3 TR Peak Daniel 2.2 m/sec LA Dimen 2D 3.8 2.3 - 4.0 cm TR Peak PG 20.0 mmHg RVSP 23.0 mmHg Findings Left Ventricle: Normal left ventricular systolic function. Normal left ventricular cavity size. Mild concentric left ventricular hypertrophy. Ejection fraction is visually estimated at 65 %. Tissue Doppler/Mitral Doppler indices are consistent with impaired relaxation (Stage I diastolic dysfunction). Right Ventricle: Normal right ventricular size. Normal right ventricular systolic function. Left Atrium: The left atrium is normal in size. Right Atrium: The right atrium is normal in size. Atrial Septum: Bubble study was performed with and with out valsalva indicating no evidence of intra atrial shunt. Mitral Valve: Mild mitral leaflet calcification. Mild mitral annular calcification. Trace mitral regurgitation. Aortic Valve: Normal appearance of the aortic valve. No significant aortic stenosis or insufficiency. Tricuspid Valve: Normal appearance of the tricuspid valve. Estimated peak PA systolic pressure 23 mmHg. There is mild tricuspid regurgitation. Pulmonic Valve: Pulmonic valve not well visualized. There is trace pulmonic regurgitation. Pericardium: Normal pericardium with no significant pericardial effusion. Aorta: Normal aortic root. IVC: Normal size and normal respiratory collapse consistent with normal right atrial pressure. Conclusions 1.Normal left ventricular systolic function. Normal left ventricular cavity size. Mild concentric left ventricular hypertrophy. Ejection fraction is visually estimated at 65 %. Tissue Doppler/Mitral Doppler indices are consistent with impaired relaxation (Stage I diastolic dysfunction). 2.Mild mitral leaflet calcification. Mild mitral annular calcification. Trace mitral regurgitation. 3.Normal appearance of the aortic valve. No significant aortic stenosis or insufficiency. 4.Normal appearance of the tricuspid valve. Estimated peak PA systolic pressure 23 mmHg. There is mild tricuspid regurgitation. Electronically Signed By: Pito Jimenes 26-Feb-2017 15:34:45 -0800 Patient Name: NATHANIEL ARIAS Study Date: 22-Feb-[id number]
--- NOTE | 2017-02-26 15:35 | RADRPT ---
Echocardiogram Report Patient Name: NATHANIEL ARIAS Gender: Female Date: 1960 Study Date: 22-Feb-2017 Medication Assistant: Lola [facility] Location: [id number] Ref. Physician: PAM RAVI Quality: Adequate Procedures: Transthoracic echocardiogram with complete 2D, M-Mode, and doppler examination. Indications: Syncope. 2D/M Mode Doppler Measurement Value Normal Ranges Measurement Value Normal Ranges LVIDd 2D 3.7 3.5 - 5.6 cm AV Peak Daniel 1.7 m/sec LVIDs 2D 2.4 2.1 - 4.1 cm AV Peak PG 11.0 mmHg FS 2D 35.6 % LVOT Peak Daniel 1.1 m/sec LVPWd 2D 1.3 0.6 - 1.1 cm LVOT Peak PG 5.0 mmHg IVSd 2D 1.3 0.6 - 1.1 cm MV E Peak Daniel 0.7 m/sec IVS/LVPW 2D 1.0 MV A Peak Daniel 0.8 m/sec AoR Diam 2D 2.3 2.0 - 3.7 cm MV E/A 0.9 LA/Ao 2D 2 0 - 1 MV Decel Time 275 msec EDV 2D 51.1 cm3 MV E/A 0.9 ESV 2D 13.7 cm3 TR Peak Daniel 2.2 m/sec LA Dimen 2D 3.8 2.3 - 4.0 cm TR Peak PG 20.0 mmHg RVSP 23.0 mmHg Findings Left Ventricle: Normal left ventricular systolic function. Normal left ventricular cavity size. Mild concentric left ventricular hypertrophy. Ejection fraction is visually estimated at 65 %. Tissue Doppler/Mitral Doppler indices are consistent with impaired relaxation (Stage I diastolic dysfunction). Right Ventricle: Normal right ventricular size. Normal right ventricular systolic function. Left Atrium: The left atrium is normal in size. Right Atrium: The right atrium is normal in size. Atrial Septum: Bubble study was performed with and with out valsalva indicating no evidence of intra atrial shunt. Mitral Valve: Mild mitral leaflet calcification. Mild mitral annular calcification. Trace mitral regurgitation. Aortic Valve: Normal appearance of the aortic valve. No significant aortic stenosis or insufficiency. Tricuspid Valve: Normal appearance of the tricuspid valve. Estimated peak PA systolic pressure 23 mmHg. There is mild tricuspid regurgitation. Pulmonic Valve: Pulmonic valve not well visualized. There is trace pulmonic regurgitation. Pericardium: Normal pericardium with no significant pericardial effusion. Aorta: Normal aortic root. IVC: Normal size and normal respiratory collapse consistent with normal right atrial pressure. Conclusions 1.Normal left ventricular systolic function. Normal left ventricular cavity size. Mild concentric left ventricular hypertrophy. Ejection fraction is visually estimated at 65 %. Tissue Doppler/Mitral Doppler indices are consistent with impaired relaxation (Stage I diastolic dysfunction). 2.Mild mitral leaflet calcification. Mild mitral annular calcification. Trace mitral regurgitation. 3.Normal appearance of the aortic valve. No significant aortic stenosis or insufficiency. 4.Normal appearance of the tricuspid valve. Estimated peak PA systolic pressure 23 mmHg. There is mild tricuspid regurgitation. Electronically Signed By: Pito Jimenes 26-Feb-2017 15:34:45 -0800 Patient Name: NATHANIEL ARIAS Study Date: 22-Feb-[id number]
== END 2017-02-24 13:30 | disposition home or self-care (01) | DRG 690 ==
LOC: E/R 22:02 → OBSVTOIN 02-21 01:32 → MS4 02-21 01:32
PROVIDERS: ADMIT Family Medicine; ATTEND Family Medicine
DX: N39.0 Urinary tract infection, site not specified (principal); R00.1 Bradycardia, unspecified; R55 Syncope and collapse; E03.9 Hypothyroidism, unspecified; E78.5 Hyperlipidemia, unspecified; R51 Headache; R42 Dizziness and giddiness; E66.9 Obesity, unspecified; Z68.33 Body mass index [BMI] 33.0-33.9, adult; E86.9 Volume depletion, unspecified
CPT/HCPCS: 36415; 70450; 70551; 71010; 80048; 80053; 80061; 80069; 81001; 82550; 82553; 82962; 83036; 83735; 84443; 84484; 85025; 87086; 93005; 93306; 93880; G0378; J0696; J7030